=== PATIENT | male | born 2000 | race African-American/Black ===

== ENCOUNTER 2025-05-28 10:44 | Emergency (ER) | payer OTHER ==
[~2025-05-28] VITALS: Ht 175.3 cm; Wt 89.2 kg
[2025-05-28 13:31] VITALS: BP 117/73; TEMP 97.1; O2SAT 99
[2025-05-28] MEDS ORDERED: FIOR1CAP PO (15:45)
[2025-05-28] MEDS ORDERED: SUMA50TA2 PO (15:45)
== END 2025-05-28 15:58 | disposition home or self-care (01) ==
LOC: M ED 10:44
DX: R51.9 Headache, unspecified (principal); Z79.1 Long term (current) use of non-steroidal anti-inflammatories (NSAID); Z79.899 Other long term (current) drug therapy